=== PATIENT | female | born 1950 | race Two or more races ===

== ENCOUNTER → 2019-11-08 | Outpatient (CLI) | payer OTHER ==
[2019-11-08] MEDS: ZOLPIDEM 5 MG TABLET. PO ONE (22:00)
--- NOTE | 2019-11-09 21:47 | SLEEP ---
DATE OF STUDY: 11/08/2019 SLEEP STUDY ATTENDING PHYSICIAN: Jose Balderas MD The patient is 69 years old who weighs 175 pounds with a BMI of 37. The patient's [place] score was 10. The patient underwent split night study performed at [facility]. During the night study, the patient spent 412 minutes in bed and slept for 304 minutes with a sleep efficiency of 74%. Sleep latency was 36 minutes with a REM latency of 247 minutes. Sleep architecture showed increased stage 1 and stage 2 sleep, normal slow wave and reduced REM sleep. During the initial diagnostic portion of the study, the patient slept for 140 minutes. During that time, the patient had 9 obstructive apneas, 5 mixed apneas, no central apneas and 53 hypopneas. The patient's apnea hypopnea index was 29 per hour. The patient did not have supine sleep. The patient did not have REM sleep during the diagnostic portion. EKG monitoring revealed an average heart rate of 79 beats per minute, no sustained arrhythmias observed. Nocturnal oximetry study revealed a mean oxygen saturation of 92% with the lowest of 85%. A 24% of the time in oxygen saturation remained between 80% and 89%. PLMS were seen at index of 10 per hour and 4 per hour caused EEG arousals. The patient met the criteria for CPAP initiation. It was started at 5 cm water and titrated up to 7 cm water. At the final pressure, the patient slept for 50 minutes. The patient has a supine sleep, but no REM sleep. The patient's AHI was reduced to 0 per hour and oxygen saturation remained above 92%. The patient used medium size nasal pillows. IMPRESSION: 1. Knlkxsow-xu-[id number] sleep apnea-hypopnea syndrome. Total apnea-hypopnea index 29 per hour. Absence of REM sleep during the diagnostic portion can underestimate the severity of sleep apnea. 2. Nocturnal hypoxia, secondary to obstructive sleep apnea, but resolved with CPAP. 3. Mild PLMS. This does not need to be treated. RECOMMENDATIONS: 1. CPAP at 7 cm water completely eliminated the patient's sleep apnea and should be used on a nightly basis. 2. Follow up in 4-6 weeks to assess compliance with CPAP and to document clinical improvement. 3. Weight loss is strongly advised. 4. Avoid GLOVE PRESSER depressants. 5. Cautioned regarding driving until symptoms of sleep apnea resolve with the use of CPAP. PEÑA FLOREZ MD DR: Leoncio JOB#: [id number] / [id number]
== END | disposition home or self-care (01) ==
LOC: SLPLAB 18:12
PROVIDERS: ATTEND Internal Medicine Critical Care Medicine
DX: G47.33 Obstructive sleep apnea (adult) (pediatric) (principal); G47.34 Idiopathic sleep related nonobstructive alveolar hypoventilation
CPT/HCPCS: 95810

== ENCOUNTER → 2019-12-13 | Day surgery (SDC) | payer MEDICARE, OTHER ==
[~2019-12-13] MED LIST: AMLO10TA8 PO; HYDR-2145 PO; IV RINGERS,LACTATED 1000ML 1,000 ML IV SCH; LIDOCAINE 2% PF 5 ML VIAL. ONE; LISI-334 PO; OMEP20TA8 PO; ONDANSETRON PF 4 MG/2 ML VIAL. IV PRN; PROCHLORPERAZINE 10 MG/2 ML VIAL. IV PRN; PROPOFOL 20 ML IV ONE; SIMV20TA18 PO; fentaNYL PF VIAL 100 MCG/2 ML VIAL IV PRN
--- NOTE | 2019-12-13 09:29 | HP ---
ADMIT DATE: 12/13/2019 REASON FOR CONSULTATION: Heartburn, abdominal pain, status post cholecystectomy. HISTORY OF PRESENT ILLNESS: A 69-year-old female whose past medical history is significant for hypertension, hyperlipidemia, status post marti, is seen with persistent epigastric pain; had persistent reflux despite omeprazole 40 mg daily. She does avoid alcohol, nicotine and caffeine products. Cardiac evaluation has been unrevealing. Early cystitis is noted, but her weight is unchanged. With continued issues, she requests additional evaluation. PAST MEDICAL HISTORY: Hypertension, hyperlipidemia, GERD. ALLERGIES: CODEINE. MEDICATIONS: Include amlodipine, hydrochlorothiazide, lisinopril, omeprazole, and simvastatin. FAMILY HISTORY: Significant for CVA with father and Crohn's with sibling, hypertension in her mother. PAST SURGICAL HISTORY: Cholecystectomy and tubal ligation. REVIEW OF SYSTEMS: Per records. PHYSICAL EXAMINATION: GENERAL: Reveals a well-nourished, well-developed female, who is alert, cooperative, in no acute distress. VITAL SIGNS: Temp 97.4, pulse 74, respirations 20. LUNGS: Clear. CARDIOVASCULAR: Reveals an S1, S2 without S3, S4 or appreciable murmur. ABDOMEN: Reveals soft abdomen, normal bowel sounds, without appreciable hepatosplenomegaly. EXTREMITIES: Reveals no cyanosis, clubbing or edema. IMPRESSION: Epigastric abdominal pain with nausea, heartburn, etiology to be determined. Differential includes celiac disease, gastroparesis, peptic ulcer disease, and gastroparesis. Therefore, recommend upper endoscopy. If this is unrevealing, gastric emptying study would be pursued. LINDA HARRIS MD DR: EDWAR/hannah JOB#: [id number] / [id number]
[2019-12-13 09:50] VITALS: BP 100/51
== END ==
LOC: ENDOS 07:40
PROVIDERS: ATTEND Internal Medicine Gastroenterology
DX: R10.13 Epigastric pain (principal); K44.9 Diaphragmatic hernia without obstruction or gangrene; K21.9 Gastro-esophageal reflux disease without esophagitis; I10 Essential (primary) hypertension; E78.5 Hyperlipidemia, unspecified; Z90.49 Acquired absence of other specified parts of digestive tract; Z88.5 Allergy status to narcotic agent; Z98.51 Tubal ligation status
CPT/HCPCS: 43235; J2001; J2704

== ENCOUNTER 2020-02-23 10:19 | Emergency (ER) | payer MEDICARE ==
[~2020-02-23] VITALS: Ht 157.5 cm; Wt 79.5 kg
[~2020-02-23 10:19] MED LIST changes: -IV RINGERS,LACTATED 1000ML 1,000 ML IV SCH; -LIDOCAINE 2% PF 5 ML VIAL. ONE; -ONDANSETRON PF 4 MG/2 ML VIAL. IV PRN; -PROCHLORPERAZINE 10 MG/2 ML VIAL. IV PRN; -PROPOFOL 20 ML IV ONE; -fentaNYL PF VIAL 100 MCG/2 ML VIAL IV PRN
--- NOTE | 2020-02-23 11:09 | PHYS DOC ---
Past Medical History Past Medical History: GERD, High Cholesterol, Hypertension Past Surgical History: Appendectomy, Cholecystectomy, Tubal ligation Additional Past Surgical Histo: left foot, left arm Smoking Status: Current Every Day Smoker Alcohol Use: None Adult General Chief Complaint Chief Complaint: SHORTNESS OF BREATH HPI HPI Patient is a 69 year old female who presents with 1 week of malaise, cough, chills, shortness of breath. Patient son is a EMS worker and she when she called her primary care today they stated for her to come in and be evaluated in the ER due to her son being an EMS worker and unknown if he has been around a patient with coronavirus. Patient states she is been taking Tylenol for her symptoms. Review of Systems Review of Systems Constitutional: s fever or chills [] Respiratory: cough or shortness of breath [] All other systems were reviewed and found to be within normal limits, except as documented in this note. Current Medications Current Medications Current Medications Medications (Trade) Dose Ordered Sig/Celeste Start Time Stop Time Status Last Admin Dose Admin Albuterol Sulfate (Ventolin Neb Soln) 2.5 mg 1X ONCE 02/23/20 11:45 02/23/20 11:46 DC 02/23/20 11:45 2.5 MG Methylprednisolone Sodium Succinate (SOLU-Medrol 125MG VIAL) 125 mg 1X ONCE 02/23/20 11:45 02/23/20 11:46 DC 02/23/20 11:50 125 MG Sodium Chloride 1,000 ml @ 1,000 mls/hr 1X ONCE 02/23/20 12:15 02/23/20 13:14 DC 02/23/20 12:37 1,000 MLS/HR Allergies Allergies Allergies Coded Allergies Type Severity Reaction Last Updated Verified codeine Allergy Mild 12/13/19 Yes Physical Exam Physical Exam Constitutional: Well developed, well nourished, no acute distress, non-toxic appearance. [] HENT: Normocephalic, atraumatic, bilateral external ears normal, oropharynx moist, no oral exudates, nose normal. [] Eyes: PERRLA, EOMI, conjunctiva normal, no discharge. [] Neck: Normal range of motion, no tenderness, supple, no stridor. [] Cardiovascular:Heart rate regular rhythm, no murmur [] Lungs & Thorax: Bilateral breath sounds clear to auscultation [] Abdomen: Bowel sounds normal, soft, no tenderness, no masses, no pulsatile masses. [] Skin: Warm, dry, no erythema, no rash. [] Back: No tenderness, no CVA tenderness. [] Extremities: No tenderness, no cyanosis, no clubbing, ROM intact, no edema. [] Neurologic: Alert and oriented X 3, normal motor function, normal sensory fun ction, no focal deficits noted. [] Psychologic: Affect normal, judgement normal, mood normal. Normal Physical Exam[] Current Patient Data Vital Signs Vital Signs Date Time Temp Pulse Resp B/P (MAP) Pulse Ox O2 Delivery O2 Flow Rate FiO2 02/23/20 12:30 66 10 122/73 (89) 96 Room Air 02/23/20 10:34 98.5 98.5 Lab Values Laboratory Tests Test 02/23/20 11:10 02/23/20 11:30 02/23/20 13:00 Influenza Type A Antigen Negative (NEGATIVE) Influenza Type B Antigen Negative (NEGATIVE) White Blood Count 7.2 x10^3/uL (4.0-11.0) Red Blood Count 4.52 x10^6/uL (3.50-5.40) Hemoglobin 14.1 g/dL (12.0-15.5) Hematocrit 41.1 % (36.0-47.0) Mean Corpuscular Volume 91 fL (79-100) Mean Corpuscular Hemoglobin 31 pg (25-35) Mean Corpuscular Hemoglobin Concent 34 g/dL (31-37) Red Cell Distribution Width 14.4 % (11.5-14.5) Platelet Count 225 x10^3/uL (140-400) Neutrophils (%) (Auto) 70 % (31-73) Lymphocytes (%) (Auto) 23 % (24-48) L Monocytes (%) (Auto) 5 % (0-9) Eosinophils (%) (Auto) 1 % (0-3) Basophils (%) (Auto) 1 % (0-3) Neutrophils # (Auto) 5.0 x10^3/uL (1.8-7.7) Lymphocytes # (Auto) 1.7 x10^3/uL (1.0-4.8) Monocytes # (Auto) 0.4 x10^3/uL (0.0-1.1) Eosinophils # (Auto) 0.0 x10^3/uL (0.0-0.7) Basophils # (Auto) 0.0 x10^3/uL (0.0-0.2) Sodium Level 139 mmol/L (136-145) Potassium Level 3.6 mmol/L (3.5-5.1) Chloride Level 101 mmol/L (98-107) Carbon Dioxide Level 27 mmol/L (21-32) Anion Gap 11 (6-14) Blood Urea Nitrogen 11 mg/dL (7-20) Creatinine 0.8 mg/dL (0.6-1.0) Estimated GFR (Cockcroft-Gault) 71.3 BUN/Creatinine Ratio 14 (6-20) Glucose Level 105 mg/dL (70-99) H Calcium Level 9.6 mg/dL (8.5-10.1) Total Bilirubin 0.5 mg/dL (0.2-1.0) Aspartate Amino Transferase (AST) 29 U/L (15-37) Alanine Aminotransferase (ALT) 26 U/L (14-59) Alkaline Phosphatase 57 U/L (46-116) Troponin I Quantitative < 0.017 ng/mL (0.000-0.055) ZP-Vqy-S-Type Natriuretic Peptide 31 pg/mL (0-124) Total Protein 6.9 g/dL (6.4-8.2) Albumin 4.1 g/dL (3.4-5.0) Albumin/Globulin Ratio 1.5 (1.0-1.7) Urine Collection Type Unknown Urine Color Yellow Urine Clarity Clear Urine pH 6.5 (<5.0-8.0) Urine Specific [place] 1.010 (1.000-1.030) Urine Protein Negative mg/dL (NEG-TRACE) Urine Glucose (UA) Negative mg/dL (NEG) Urine Ketones (Stick) Negative mg/dL (NEG) Urine Blood Negative (NEG) Urine Nitrite Negative (NEG) Urine Bilirubin Negative (NEG) Urine Urobilinogen Dipstick 0.2 mg/dL (0.2 mg/dL) Urine Leukocyte Esterase Negative (NEG) Urine RBC 0 /HPF (0-2) Urine WBC Occ /HPF (0-4) Urine Squamous Epithelial Cells Few /LPF Urine Bacteria 0 /HPF (0-FEW) Laboratory Tests 02/23/20 11:30 Laboratory Tests 02/23/20 11:30 EKG EKG Sinus Rhythm and no STEMI[] Interpretation Time: [address] Prather Radiology/Procedures Radiology/Procedures [] Impressions: [facility] [address] [place] [address] IMAGING REPORT Signed PATIENT: NBA LATHAM ACCOUNT: [id number] : 1950 LOCATION: ER AGE: 69 SEX: F EXAM STATUS: REG ER ORD. PHYSICIAN: RICHARD MCKEON APRN REASON: SHORT OF BREATH, COUGH PROCEDURE: PORTABLE CHEST 1V PORTABLE CHEST 1V History: Shortness of breath. Cough. Comparison with images of chest x-ray from 08/09/2009, without the report. The cardiomediastinal silhouette is similar and not enlarged. Aortic ectasia/tortuosity is again seen. There is some retrocardiac density, most likely a hiatal hernia. This was also seen previously although appears larger today. No evidence of pneumothorax. No pleural effusion. No focal infiltrate. Bones appear grossly intact. IMPRESSION: 1. Retrocardiac density, most likely a hiatal hernia. Also seen previously but appears larger today. Nonemergent CT chest could confirm, as indicated. 2. No evidence of consolidating infiltrate. Electronically signed by: Rick Lazo MD (02/23/2020 11:24 AM) [id number] DICTATED and SIGNED BY: RICK LAZO MD DATE: 02/23/20 1124 Course & Med Decision Making Course & Med Decision Making Pertinent Labs and Imaging studies reviewed. (See chart for details) Lungs are clear to auscultation all lobes. Patient's vital signs are within normal limits. No extremity swelling. Alert and oriented. Speaks in full clear sentences. Skin pink warm and dry. Patient's son has no symptoms and has not had to be tested and does not have any history of coronavirus. She has no history of travel or being around anybody else is been sick. She denies any nausea or vomiting, abdominal pain, chest pain, diarrhea, headache, dizziness, numbness or tingling, visual changes. Patient does have a history of GERD, hypertension, high cholesterol, appendectomy, cholecystectomy, smoker. [] Blood work unremarkable. Chest x-ray unremarkable. Urinalysis shows no infection. Patient is stable. Vital signs within normal limits. Patient will be sent home with an inhaler and steroids. She is a smoker. Dragon Disclaimer Dragon Disclaimer This electronic medical record was generated, in whole or in part, using a voice recognition dictation system. Departure Departure Impression: Primary Impression: Shortness of breath Disposition: HOME, SELF-CARE Condition: STABLE Referrals: UNKNOWN PCP NAME (PCP) Patient Instructions: Shortness of Breath, [id number] Additional Instructions: Follow-up with primary care provider. Take medications as prescribed with food. Stay inside and rest. Drink plenty of fluids. Scripts Albuterol Sulfate (PROAIR HFA INHALER) 8.5 Gm Hfa.aer.ad 1 PUFF INH PRN Q6HRS PRN for SHORTNESS OF BREATH, #1 INHALER 0 Refills Prov: RICHARD MCKEON APRN 02/23/20 Methylprednisolone (MEDROL) 4 Mg Tab.ds.pk 1 PKG PO UD, #1 PKG Prov: RICHARD MCKEON [employer] 02/23/20 RICHARD MCKEON APRN Feb 23, 2020 11:09
--- NOTE | 2020-02-23 11:27 | RAD ---
PORTABLE CHEST 1V History: Shortness of breath. Cough. Comparison with images of chest x-ray from 08/09/2009, without the report. The cardiomediastinal silhouette is similar and not enlarged. Aortic ectasia/tortuosity is again seen. There is some retrocardiac density, most likely a hiatal hernia. This was also seen previously although appears larger today. No evidence of pneumothorax. No pleural effusion. No focal infiltrate. Bones appear grossly intact. IMPRESSION: 1. Retrocardiac density, most likely a hiatal hernia. Also seen previously but appears larger today. Nonemergent CT chest could confirm, as indicated. 2. No evidence of consolidating infiltrate. Electronically signed by: Rick Lazo MD (02/23/2020 11:24 AM) [id number]
[2020-02-23 11:43] LABS: BASO % 1 % (0-3); EOS % 1 % (0-3); HEMATOCRIT 41.1 % (36.0-47.0); HEMOGLOBIN 14.1 g/dL (12.0-15.5); LYMPH # 1.7 x10^3/uL (1.0-4.8); LYMPH % 23 % (24-48); MEAN CORPUSCULAR HEMOGLOBIN 31 pg (25-35); MEAN CORPUSCULAR HGB CONC 34 g/dL (31-37); MEAN CORPUSCULAR VOLUME 91 fL (79-100); MONO # 0.4 x10^3/uL (0.0-1.1); MONO % 5 % (0-9); NEUT % 70 % (31-73); PLATELET COUNT 225 x10^3/uL (140-400); RED BLOOD COUNT 4.52 x10^6/uL (3.50-5.40); RED CELL DISTRIBUTION WIDTH 14.4 % (11.5-14.5); WHITE BLOOD COUNT 7.2 x10^3/uL (4.0-11.0)
[2020-02-23] MEDS ORDERED: ALBUTEROL SULFATE 2.5 MG/3 ML NEBU. NEB ONE (11:45)
[2020-02-23] MEDS ORDERED: methylPREDNISolone SOD SUCC PF 125 MG/2 ML VIAL. IV ONE (11:45)
[2020-02-23 11:52] LABS: CALCIUM 9.6 mg/dL (8.5-10.1); CREATININE 0.8 mg/dL (0.6-1.0); GFR 71.3; POTASSIUM 3.6 mmol/L (3.5-5.1)
[2020-02-23 11:58] LABS: ALBUMIN 4.1 g/dL (3.4-5.0); ALBUMIN/GLOBULIN RATIO 1.5 (1.0-1.7); TOTAL BILIRUBIN 0.5 mg/dL (0.2-1.0); TOTAL PROTEIN 6.9 g/dL (6.4-8.2)
[2020-02-23 11:59] LABS: INFLUENZA A PATIENT NEGATIVE (NEGATIVE); INFLUENZA B PATIENT NEGATIVE (NEGATIVE)
[2020-02-23] MEDS ORDERED: IV NORMAL SALINE 1000ML BAG 1,000 ML IV ONE (12:15)
--- NOTE | 2020-02-23 12:51 | EKG ---
[facility] [address] [place] [address] Test Date: 2020-02-23 Test Time: 10:57:02 Pat Name: NBA LATHAM Department: Room: Gender: F [place]: : 1950 Requested By: RICHARD MCKEON Order Number: [id number] Reading MD: Measurements Intervals [place] Rate: 74 P: 26 TX: 154 QRS: 31 QRSD: 82 T: 28 QT: 400 QTc: 444 Interpretive Statements SINUS RHYTHM LOW LIMB LEAD VOLTAGE NO SPECIFIC ECG ABNORMALITIES RI6.01 No previous ECG available for comparison
[2020-02-23 13:12] LABS: BILIRUBIN,URINE NEGATIVE (NEG); CLARITY,URINE CLEAR; COLOR,URINE YELLOW; NITRITE,URINE NEGATIVE (NEG); PH,URINE 6.5 (<5.0-8.0); PROTEIN,URINE NEGATIVE (NEG-TRACE); UROBILINOGEN,URINE 0.2 mg/dL (0.2 mg/dL)
[2020-02-23 13:18] LABS: SQUAMOUS EPITHELIAL CELL,UR FEW /LPF
[2020-02-23 13:19] LABS: BACTERIA,URINE 0 /HPF (0-FEW); RBC,URINE 0 /HPF (0-2); WBC,URINE OCC /HPF (0-4)
[2020-02-23] MEDS ORDERED: ALBU2.5V8 INH (13:25)
[2020-02-23] MEDS ORDERED: METH4TAB2 PO (13:25)
[2020-02-23 13:30] VITALS: BP 130/72
== END 2020-02-23 14:49 | disposition home or self-care (01) ==
LOC: ER 10:19
DX: R06.02 Shortness of breath (principal); R05 Cough; R53.83 Other fatigue; K21.9 Gastro-esophageal reflux disease without esophagitis; E78.00 Pure hypercholesterolemia, unspecified; I10 Essential (primary) hypertension; Z90.89 Acquired absence of other organs; Z90.49 Acquired absence of other specified parts of digestive tract; Z98.51 Tubal ligation status; F17.200 Nicotine dependence, unspecified, uncomplicated; Z88.5 Allergy status to narcotic agent
CPT/HCPCS: 36415; 71045; 80053; 81001; 83880; 84484; 85025; 87804; 93005; 94640; 96361; 96374; 99285; J2930; J7030; J7613

== ENCOUNTER → 2020-05-23 | Outpatient (CLI) | payer MEDICARE ==
[~2020-05-23] MED LIST changes: +ALBU2.5V8 INH; +CHOL500050 PO; +HYDR-2759 PO; +METH4TAB2 PO; +SUCR1ORA14 PO
== END | disposition home or self-care (01) ==
LOC: LAB 14:13
PROVIDERS: ATTEND Surgery
DX: Z01.818 Encounter for other preprocedural examination (principal); Z11.59 Encounter for screening for other viral diseases
CPT/HCPCS: U0003-CS

== ENCOUNTER 2020-05-27 08:22 | Inpatient (IN) | payer MEDICARE ==
[~2020-05-27] VITALS: Ht 147.3 cm; Wt 72.6 kg
[~2020-05-27 08:22] MED LIST changes: -HYDR-2759 PO; +IV RINGERS,LACTATED 1000ML 1,000 ML IV SCH; +LIDOCAINE 1% PF 2 ML VIAL. ID PRN; +ONDANSETRON PF 4 MG/2 ML VIAL. IV PRN; +PROCHLORPERAZINE 10 MG/2 ML VIAL. IV PRN; +fentaNYL PF VIAL 100 MCG/2 ML VIAL IV PRN
[2020-05-27] MEDS ORDERED: ceFAZolin 2GM PREMIX 2 GM/50 ML BAG IV ONE (09:00)
[2020-05-27] MEDS ORDERED: LIDOCAINE 4% KIT 4 ML SOLUTION. TP ONE (09:06)
[2020-05-27] MEDS ORDERED: fentaNYL PF VIAL 250 MCG/5 ML VIAL ONE (09:06)
[2020-05-27] MEDS ORDERED: PROPOFOL 10 MG/ML (20ML) VIAL. IV ONE (09:06)
[2020-05-27] MEDS ORDERED: ROCURONIUM 100 MG/10 ML VIAL. ONE (09:06)
[2020-05-27] MEDS ORDERED: DESFLURANE 61 TO 120 MINUTES IH ONE (09:06)
[2020-05-27] MEDS ORDERED: MIDAZOLAM HCL/PF 2 MG/2 ML VIAL. ONE (09:06)
[2020-05-27] MEDS ORDERED: LIDOCAINE 1% PF 5 ML VIAL. ONE (09:06)
[2020-05-27] MEDS ORDERED: BUPIVACAINE-EPI 0.5%-1:200000 MPF 30 ML VIAL. ONE (09:26)
[2020-05-27] MEDS ORDERED: SURGICEL HEMOSTAT 4X8 EACH. ONE ×2 (09:27)
[2020-05-27] MEDS ORDERED: GLYCOPYRROLATE 1 MG/5 ML VIAL. ONE (09:51)
[2020-05-27] MEDS ORDERED: PHENYLEPHRINE in 0.9% NACL PF 1 MG/10 ML SYRINGE. IV ONE (11:42)
[2020-05-27] MEDS ORDERED: ePHEDrine PF IN SALINE 50 MG/10 ML SYRINGE. IV ONE (11:43)
[2020-05-27] MEDS ORDERED: fentaNYL PF VIAL 100 MCG/2 ML VIAL ONE (13:00)
[2020-05-27] MEDS: IV NORMAL SALINE 1000ML BAG 1,000 ML IV SCH (13:09)
--- NOTE | 2020-05-27 13:09 | PDOC4 ---
Operative Note Operative Note Operative Note Preoperative Diagnosis: Large paraesophageal hernia Postoperative Diagnosis: Same Procedure: Laparoscopic repair of large paraesophageal hernia with Yvette fundoplication Surgeon: Nahun Baum.: Dr. Rivera Anesthesia: Gen. Estimated Blood Loss: 20 mL Specimen: None Drains: None Complications: None Indications: The patient is a 69-year-old female who was referred following a GI evaluation showing a large paraesophageal hernia. She was offerred surgical repair. The risks of surgery were discussed which include bleeding, infection, recurrent herniation, gastric or esophageal perforation, visceral injury, recurrent reflux, gas bloat syndrome, dysphasia, potential need for additional surgeries or procedures. She understands and would like to proceed. Description: The patient was taken to the operating room and placed supine on the operating table. General anesthesia was performed. The patient was then placed in lithotomy. The abdomen was prepped with ChloraPrep and draped in a standard surgical fashion. A small incision was made superior to and to the patient's left of the umbilicus through which a visualized 5 mm trocar was inserted. A pneumoperitoneum was then created and the laparoscope was introduced. In the right lateral abdomen a 12 mm trocar was inserted. There were numerous adhesions of omentum to the anterior abdominal wall from prior surgery. The central portion of these adhesions were freed off the abdominal wall with a harmonic scalpel to facilitate exposure. A soft fan retractor was used to elevate the left lobe of the liver. In the right upper quadrant a 5 mm trocar was inserted. In the left upper quadrant an 11 mm trocar was inserted while in the left lateral abdomen a 5 mm trocar was inserted. Attention was then directed to the diaphragmatic hiatus. As expected there was a very large hiatal hernia defect with a significant amount of the stomach present in the chest. We began mobilizing the entire hernia sac within the mediastinum. We started this on the right side and began freeing up the sac from the right abdiaziz. The Harmonic scalpel assisted for much of this dissection. We continued mobilizing the sac superiorly well into the mediastinum. We continued this dissection anteriorly freeing up the sac and its attachments in this location. The dissection then continued along the left abdiaziz and the sac and attachments were mobilized here as well. Due to the large size and redundancy of the sac considerable time was required in freeing this out of the mediastinum. The gastrocolic omentum was then opened with the Harmonic scalpel in the upper portion of the greater curvature. We then freed up the upper part of the greater curvature and fundus using the harmonic scalpel. Large blood vessels were doubly clipped and divided. The dissection continued all the way back up t o the left abdiaziz and any remaining splenic attachments were also mobilized. At this point the esophagus was readily visualized and we were able to free up the area around his gastroesophageal junction. A [place] drain was then placed around the esophagus at the GE junction and clips were applied holding the Kristian in place. With retraction on the Kristian we were able to continue freeing up any remaining sac attachments particularly in the posterior location. At this point the GE junction was well within the abdominal cavity. The left and right abdiaziz were then reapproximated with interrupted 2-0 silk sutures using the Endo Stitch device. We reinforced the repair with a Phasix ST mesh patch. The mesh was laid up against the diaphragm covering the suture repiar. Initial fixation sutures were placed at the superior corners of the mesh using 2-0 silk. The entire mesh was then fixed to the diaphragm using the Tisseel fibrin glue. The fundus was then wrapped around in a 360 fashion creating the fundoplic ation. A shoeshine maneuver was used to ensure no twists or kinks. An initial 2-0 Ethibond suture was used securing the fundic lips together. Another suture was placed superior to this which incorporated a small bite of the anterior esophagus. An additional suture was then placed inferiorly completing the fundoplication. At this point hemostasis was good, the hernia was well repaired with good coverage from the biologic mesh, and the fundoplication was intact with a nice orientation. The 11 and 12 mm trochars were then removed and the fascia closed with 0 Vicryl using an Endo Close. The remaining ports were removed and the pneumoperitoneum was relieved. Skin at all incisions was closed with 4-0 Monocryl. Steri-Strips and dressings were applied. The patient tolerated the procedure well. LINDA GARAY MD May 27, 2020 13:09
[2020-05-27] MEDS ORDERED: PROCHLORPERAZINE 10 MG/2 ML VIAL. IV PRN (13:15)
[2020-05-27] MEDS ORDERED: NALOXONE 0.4 MG/ML VIAL. IV PRN (13:15)
[2020-05-27] MEDS ORDERED: ONDANSETRON PF 4 MG/2 ML VIAL. IVP PRN (13:15)
[2020-05-27] MEDS ORDERED: 0.9 % SODIUM CHLORIDE 10 ML DISP.SYRIN. IV PRN (13:15)
[2020-05-27] MEDS: fentaNYL PF VIAL 100 MCG/2 ML VIAL IV PRN ×2 (13:56→14:11)
[2020-05-27] MEDS: IV 1/2 NORMAL SALINE 1,000 ML IV SCH (15:15)
[2020-05-27 16:01] VITALS: BP 110/62
[2020-05-27 16:31] VITALS: BP 118/73
[2020-05-27 17:01] VITALS: BP 119/72
[2020-05-27] MEDS: HYDROmorphone 2 MG/ML VIAL IV PRN ×3 (17:07→22:10)
[2020-05-27 19:00] VITALS: BP 110/73
[2020-05-27 23:00] VITALS: BP 106/65
[2020-05-28] MEDS: HYDROmorphone 2 MG/ML VIAL IV PRN ×6 (01:23→22:12)
[2020-05-28] MEDS: IV 1/2 NORMAL SALINE 1,000 ML IV SCH ×3 (01:24→23:39)
[2020-05-28 03:00] VITALS: BP 110/66
[2020-05-28 07:12] VITALS: BP 109/62
[2020-05-28 10:24] VITALS: BP 102/67
--- NOTE | 2020-05-28 10:36 | NUR ---
SW following. Discussed with RN, pt on 2L oxygen, which she does not use at home, npo. Pt had surgery yesterday. RN advised pt gets around okay, sometimes needing assistance. SW will continue to follow for any discharge planning needs.
[2020-05-28] MEDS: HYDROcodon/APAP 7.5/325MG ORAL 15 ML SOLUTION PO PRN ×2 (12:48→18:13)
[2020-05-28] MEDS: IV NORMAL SALINE 1000ML BAG 1,000 ML IV SCH (13:09)
[2020-05-28 14:23] VITALS: BP 99/59
[2020-05-28 19:00] VITALS: BP 104/58
--- NOTE | 2020-05-28 19:20 | NUR ---
NBA HAS INCREASED HER ACTIVITY. SHE SAT UP IN THE CHAIR FOR APPROX. 2HRS. TOLERATING JELLO AND ICE CHIPS,AND TEA WITHOUT COMPLAINTS OF NAUSEA. ATTEMPTED TO REMOVE O2 --SHE DESATED TO 82-85% REPLACED O2 AT 2LNC. SHE HAS BEEN PAINFUL; SHE HAS HAD DILAUDID X3 AND LORTAB ELIXIR X2.
[2020-05-28 23:00] VITALS: BP 106/67
[2020-05-29] MEDS: HYDROcodon/APAP 7.5/325MG ORAL 15 ML SOLUTION PO PRN ×3 (02:23→14:38)
[2020-05-29 03:00] VITALS: BP 109/62
[2020-05-29 07:09] VITALS: BP 129/69
--- NOTE | 2020-05-29 10:13 | NUR ---
SW following. Discussed with RN, pt still requiring oxygen, RN attempting to titrate. Pt diet advanced to full liquid. SW will continue to follow.
[2020-05-29 10:50] VITALS: BP 114/71
[2020-05-29] MEDS: HYDROmorphone 2 MG/ML VIAL IV PRN (11:36)
--- NOTE | 2020-05-29 12:34 | PDOC ---
PROGRESS NOTES Subjective Subjective Note delayed entry, pt was seen 05/28/20; noted entered 05/29 Pt sore, but overall doing well, on nasal cannula Objective Objective Vital Signs Date Time Temp Pulse Resp B/P (MAP) Pulse Ox O2 Delivery O2 Flow Rate FiO2 05/29/20 11:36 20 05/29/20 10:50 97.5 68 114/71 (85) 94 Nasal Cannula 2.0 97.5 Intake and Output 05/29/20 07:00 Intake Total 1500 ml Balance 1500 ml Intake Oral 500 ml IV Total 1000 ml # Voids 7 Physical Exam Abdomen: Soft (tender with palpation) Assessment Assessment POD 1 lap paraesophageal hernia repair, [place] Plan Plan of Care Begin clears, mobilize, note patient continues to use nasal cannula; given extent of surgery, her age, need for supplemental O2, would not recommend discharge of patient today. Mobilize today and start PO. Comment Review of Relevant I have reviewed the following items veronica (where applicable) has been applied. Medications Current Medications Ondansetron HCl (Zofran) 4 mg PRN Q6HRS PRN IV NAUSEA/VOMITING; Start 05/27/20 at 07:00; Stop 05/28/20 at 06:59; Status DC Fentanyl Citrate (Fentanyl 2ml Vial) 25 mcg PRN Q5MIN PRN IV MILD PAIN 1-3 Last administered on 05/27/20at 14:11; Start 05/27/20 at 07:00; Stop 05/28/20 at 06:59; Status DC Fentanyl Citrate (Fentanyl 2ml Vial) 50 mcg PRN Q5MIN PRN IV MODERATE TO SEVERE PAIN Last administered on 05/27/20at 14:17; Start 05/27/20 at 07:00; Stop 05/28/20 at 06:59; Status DC Ringer's Solution 1,000 ml @ 30 mls/hr Q24H IV ; Start 05/27/20 at 07:00; Stop 05/27/20 at 18:59; Status DC Lidocaine HCl (Xylocaine-Mpf 1% 2ml Vial) 2 ml PRN 1X PRN ID PRIOR TO IV START; Start 05/27/20 at 07:00; Stop 05/28/20 at 06:59; Status DC Prochlorperazine Edisylate (Compazine) 5 mg PACU PRN PRN IV NAUSEA, MRX1; Start 05/27/20 at 07:00; Stop 05/28/20 at 06:59; Status DC Cefazolin Sodium/ Dextrose 50 ml @ 100 mls/hr 1X PREOP PRN IV PRIOR TO PROCEDURE Last administered on 05/27/20at 10:21; Start 05/27/20 at 06:00; Stop 05/27/20 at 18:00; Status DC Propofol (Diprivan) 200 mg STK-MED ONCE IV ; Start 05/27/20 at 09:06; Stop 05/27/20 at 09:06; Status DC Lidocaine HCl (Lta Kit) 4 ml STK-MED ONCE TP ; Start 05/27/20 at 09:06; Stop 05/27/20 at 09:06; Status DC Lidocaine HCl (Xylocaine-Mpf 1% 5ml Vial) 5 ml STK-MED ONCE .ROUTE ; Start 05/27/20 at 09:06; Stop 05/27/20 at 09:06; Status DC Desflurane (Suprane) 60 ml STK-MED ONCE IH ; Start 05/27/20 at 09:06; Stop 05/27/20 at 09:06; Status DC Midazolam HCl (Versed) 2 mg STK-MED ONCE .ROUTE ; Start 05/27/20 at 09:06; Stop 05/27/20 at 09:07; Status DC Fentanyl Citrate (Fentanyl 5ml Vial) 250 mcg STK-MED ONCE .ROUTE ; Start 05/27/20 at 09:06; Stop 05/27/20 at 09:07; Status DC Rocuronium [place] (Zemuron) 100 mg STK-MED ONCE .ROUTE ; Start 05/27/20 at 09:06; Stop 05/27/20 at 09:07; Status DC Bupivacaine HCl/ Epinephrine Bitart (Sensorcain-Epi 0.5%-1:332960 Mpf) 30 ml STK-MED ONCE .ROUTE Last administered on 05/27/20at 10:55; Start 05/27/20 at 09:26; Stop 05/27/20 at 09:27; Status DC Cellulose (Surgicel Hemostat 4x8) 1 each STK-MED ONCE .ROUTE ; Start 05/27/20 at 09:27; Stop 05/27/20 at 09:27; Status DC Cellulose (Surgicel Hemostat 4x8) 1 each STK-MED ONCE .ROUTE ; Start 05/27/20 at 09:27; Stop 05/27/20 at 09:28; Status Cancel Glycopyrrolate (Robinul) 1 mg STK-MED ONCE .ROUTE ; Start 05/27/20 at 09:51; Stop 05/27/20 at 09:52; Status DC Phenylephrine HCl (PHENYLEPHRINE in 0.9% NACL PF) 1 mg STK-MED ONCE IV ; Start 05/27/20 at 11:42; Stop 05/27/20 at 11:42; Status DC Ephedrine Sulfate (ePHEDrine PF IN SALINE SYRINGE) 50 mg STK-MED ONCE IV ; Start 05/27/20 at 11:43; Stop 05/27/20 at 11:43; Status DC Fentanyl Citrate (Fentanyl 2ml Vial) 100 mcg STK-MED ONCE .ROUTE ; Start 05/27/20 at 13:00; Stop 05/27/20 at 13:00; Status DC Sodium Chloride (Normal Saline Flush) 3 ml QSHIFT PRN IV AFTER MEDS AND BLOOD DRAWS; Start 05/27/20 at 13:15 Sodium Chloride 1,000 ml @ 100 mls/hr Q10H IV Last administered on 05/28/20at 23:39; Start 05/27/20 at 13:09; Stop 05/29/20 at 05:23; Status DC Naloxone HCl (Narcan) 0.4 mg PRN Q2MIN PRN IV SEE INSTRUCTIONS; Start 05/27/20 at 13:15 Sodium Chloride 1,000 ml @ 25 mls/hr Q24H IV ; Start 05/27/20 at 13:09 Hydromorphone HCl (Dilaudid) 0.2 mg PRN Q1HR PRN IV PAIN Last administered on 05/29/20at 11:36; Start 05/27/20 at 13:15 Ondansetron HCl (Zofran) 4 mg PRN Q6HRS PRN IVP NAUESA, 1ST CHOICE; Start 05/27/20 at 13:15 Prochlorperazine Edisylate (Compazine) 5 mg PRN Q6HRS PRN IV N/V, 2nd Choice, MR X1; Start 05/27/20 at 13:15 Acetaminophen/ Hydrocodone Bitart (Lortab 7.5-325/ 15ml Oral Solution) 15 ml PRN Q6HRS PRN PO PAIN Last administered on 05/29/20at 07:44; Start 05/28/20 at 12:15 Cefazolin Sodium/ Dextrose (Ancef 2gm Premix) 2 gm STK-MED ONCE IV ; Start 05/27/20 at 09:00; Stop 05/28/20 at 12:22; Status DC Active Scripts Active Proair Hfa Inhaler (Albuterol Sulfate) 8.5 Gm Hfa.aer.ad 1 Puff INH PRN Q6HRS PRN Reported Sucralfate 1 Gm/10 Ml Oral.susp 1 Gm PO DAILY Vitamin D3 (Cholecalciferol (Vitamin D3)) 1,250 Mcg Capsule 50,000 Mcg PO WEEKLY Omeprazole 20 Mg Tablet.dr 40 Mg PO DAILY Amlodipine Besylate 10 Mg Tablet 10 Mg PO DAILY Simvastatin 20 Mg Tablet 20 Mg PO HS Lisinopril 20 Mg Tablet 20 Mg PO DAILY Hydrochlorothiazide Tablet (Hydrochlorothiazide) 25 Mg Tablet 25 Mg PO DAILY Vitals/I & O Vital Sign - Last 24 Hours 05/28/20 05/28/20 05/28/20 05/28/20 13:45 14:19 14:23 15:21 Temp 98.1 98.1 Pulse 63 Resp 17 16 B/P (MAP) 99/59 (72) Pulse Ox 92 82 92 2 O2 Delivery Nasal Cannula Room Air Nasal Cannula Nasal Cannula O2 Flow Rate 2.0 2.0 05/28/20 05/28/20 05/28/20 05/28/20 19:00 19:13 19:45 22:12 Temp 98.1 98.1 Pulse 66 Resp 18 18 B/P (MAP) 104/58 (73) Pulse Ox 93 93 93 O2 Delivery Nasal Cannula Nasal Cannula Nasal Cannula Nasal Cannula O2 Flow Rate 2.0 2.0 2.0 2.0 05/28/20 05/28/20 05/29/20 05/29/20 22:42 23:00 02:23 03:00 Temp 98.0 97.6 98.0 97.6 Pulse 74 69 Resp 18 18 18 B/P (MAP) 106/67 (80) 109/62 (78) Pulse Ox 91 91 94 O2 Delivery Nasal Cannula Nasal Cannula BiPAP/CPAP Nasal Cannula O2 Flow Rate 2.0 2.0 2.0 05/29/20 05/29/20 05/29/20 05/29/20 03:23 07:09 07:44 08:00 Temp 97.9 97.9 Pulse 77 Resp 18 16 B/P (MAP) 129/69 (89) Pulse Ox 96 O2 Delivery BiPAP/CPAP Nasal Cannula Nasal Cannula Nasal Cannula O2 Flow Rate 2.0 2.0 05/29/20 05/29/20 05/29/20 05/29/20 09:00 10:48 10:50 11:36 Temp 97.5 97.5 Pulse 68 Resp 16 20 B/P (MAP) 114/71 (85) Pulse Ox 94 88 94 O2 Delivery Nasal Cannula Room Air Nasal Cannula O2 Flow Rate 2.0 2.0 Intake and Output 05/28/20 05/28/20 05/29/20 15:00 23:00 07:00 Intake Total 0 ml 400 ml 1100 ml Balance 0 ml 400 ml 1100 ml Justicifation of Admission Dx: Justifications for Admission: Justification of Admission Dx: Yes Comments: Pt not ready for discharge today; starting liquids today, pt on O2 nasal cannula, will need to improve oxygenation, mobility, pain control for appropriate discharge LINDA GARAY MD May 29, 2020 12:34
--- NOTE | 2020-05-29 12:54 | PDOC ---
PROGRESS NOTES Subjective Subjective Better today, off O2, ambulating, some soreness; taking liquids well, no reflux Objective Objective Vital Signs Date Time Temp Pulse Resp B/P (MAP) Pulse Ox O2 Delivery O2 Flow Rate FiO2 05/29/20 11:36 20 05/29/20 10:50 97.5 68 114/71 (85) 94 Nasal Cannula 2.0 97.5 Intake and Output 05/29/20 07:00 Intake Total 1500 ml Balance 1500 ml Intake Oral 500 ml IV Total 1000 ml # Voids 7 Physical Exam Abdomen: Soft Assessment Assessment POD 2, improving, taking PO, off oxygen, ambulating; appears ready for discharge Comment Review of Relevant I have reviewed the following items veronica (where applicable) has been applied. Medications Current Medications Ondansetron HCl (Zofran) 4 mg PRN Q6HRS PRN IV NAUSEA/VOMITING; Start 05/27/20 at 07:00; Stop 05/28/20 at 06:59; Status DC Fentanyl Citrate (Fentanyl 2ml Vial) 25 mcg PRN Q5MIN PRN IV MILD PAIN 1-3 Last administered on 05/27/20at 14:11; Start 05/27/20 at 07:00; Stop 05/28/20 at 06:59; Status DC Fentanyl Citrate (Fentanyl 2ml Vial) 50 mcg PRN Q5MIN PRN IV MODERATE TO SEVERE PAIN Last administered on 05/27/20at 14:17; Start 05/27/20 at 07:00; Stop 05/28/20 at 06:59; Status DC Ringer's Solution 1,000 ml @ 30 mls/hr Q24H IV ; Start 05/27/20 at 07:00; Stop 05/27/20 at 18:59; Status DC Lidocaine HCl (Xylocaine-Mpf 1% 2ml Vial) 2 ml PRN 1X PRN ID PRIOR TO IV START; Start 05/27/20 at 07:00; Stop 05/28/20 at 06:59; Status DC Prochlorperazine Edisylate (Compazine) 5 mg PACU PRN PRN IV NAUSEA, MRX1; Start 05/27/20 at 07:00; Stop 05/28/20 at 06:59; Status DC Cefazolin Sodium/ Dextrose 50 ml @ 100 mls/hr 1X PREOP PRN IV PRIOR TO PROCEDURE Last administered on 05/27/20at 10:21; Start 05/27/20 at 06:00; Stop 05/27/20 at 18:00; Status DC Propofol (Diprivan) 200 mg STK-MED ONCE IV ; Start 05/27/20 at 09:06; Stop 05/27/20 at 09:06; Status DC Lidocaine HCl (Lta Kit) 4 ml STK-MED ONCE TP ; Start 05/27/20 at 09:06; Stop 05/27/20 at 09:06; Status DC Lidocaine HCl (Xylocaine-Mpf 1% 5ml Vial) 5 ml STK-MED ONCE .ROUTE ; Start 05/27/20 at 09:06; Stop 05/27/20 at 09:06; Status DC Desflurane (Suprane) 60 ml STK-MED ONCE IH ; Start 05/27/20 at 09:06; Stop 05/27/20 at 09:06; Status DC Midazolam HCl (Versed) 2 mg STK-MED ONCE .ROUTE ; Start 05/27/20 at 09:06; Stop 05/27/20 at 09:07; Status DC Fentanyl Citrate (Fentanyl 5ml Vial) 250 mcg STK-MED ONCE .ROUTE ; Start 05/27/20 at 09:06; Stop 05/27/20 at 09:07; Status DC Rocuronium [place] (Zemuron) 100 mg STK-MED ONCE .ROUTE ; Start 05/27/20 at 09:06; Stop 05/27/20 at 09:07; Status DC Bupivacaine HCl/ Epinephrine Bitart (Sensorcain-Epi 0.5%-1:407673 Mpf) 30 ml STK-MED ONCE .ROUTE Last administered on 05/27/20at 10:55; Start 05/27/20 at 09:26; Stop 05/27/20 at 09:27; Status DC Cellulose (Surgicel Hemostat 4x8) 1 each STK-MED ONCE .ROUTE ; Start 05/27/20 at 09:27; Stop 05/27/20 at 09:27; Status DC Cellulose (Surgicel Hemostat 4x8) 1 each STK-MED ONCE .ROUTE ; Start 05/27/20 at 09:27; Stop 05/27/20 at 09:28; Status Cancel Glycopyrrolate (Robinul) 1 mg STK-MED ONCE .ROUTE ; Start 05/27/20 at 09:51; Stop 05/27/20 at 09:52; Status DC Phenylephrine HCl (PHENYLEPHRINE in 0.9% NACL PF) 1 mg STK-MED ONCE IV ; Start 05/27/20 at 11:42; Stop 05/27/20 at 11:42; Status DC Ephedrine Sulfate (ePHEDrine PF IN SALINE SYRINGE) 50 mg STK-MED ONCE IV ; Start 05/27/20 at 11:43; Stop 05/27/20 at 11:43; Status DC Fentanyl Citrate (Fentanyl 2ml Vial) 100 mcg STK-MED ONCE .ROUTE ; Start 05/27/20 at 13:00; Stop 05/27/20 at 13:00; Status DC Sodium Chloride (Normal Saline Flush) 3 ml QSHIFT PRN IV AFTER MEDS AND BLOOD DRAWS; Start 05/27/20 at 13:15 Sodium Chloride 1,000 ml @ 100 mls/hr Q10H IV Last administered on 05/28/20at 23:39; Start 05/27/20 at 13:09; Stop 05/29/20 at 05:23; Status DC Naloxone HCl (Narcan) 0.4 mg PRN Q2MIN PRN IV SEE INSTRUCTIONS; Start 05/27/20 at 13:15 Sodium Chloride 1,000 ml @ 25 mls/hr Q24H IV ; Start 05/27/20 at 13:09 Hydromorphone HCl (Dilaudid) 0.2 mg PRN Q1HR PRN IV PAIN Last administered on 05/29/20at 11:36; Start 05/27/20 at 13:15 Ondansetron HCl (Zofran) 4 mg PRN Q6HRS PRN IVP NAUESA, 1ST CHOICE; Start 05/27/20 at 13:15 Prochlorperazine Edisylate (Compazine) 5 mg PRN Q6HRS PRN IV N/V, 2nd Choice, MR X1; Start 05/27/20 at 13:15 Acetaminophen/ Hydrocodone Bitart (Lortab 7.5-325/ 15ml Oral Solution) 15 ml PRN Q6HRS PRN PO PAIN Last administered on 05/29/20at 07:44; Start 05/28/20 at 12:15 Cefazolin Sodium/ Dextrose (Ancef 2gm Premix) 2 gm STK-MED ONCE IV ; Start 05/27/20 at 09:00; Stop 05/28/20 at 12:22; Status DC Active Scripts Active Proair Hfa Inhaler (Albuterol Sulfate) 8.5 Gm Hfa.aer.ad 1 Puff INH PRN Q6HRS PRN Reported Sucralfate 1 Gm/10 Ml Oral.susp 1 Gm PO DAILY Vitamin D3 (Cholecalciferol (Vitamin D3)) 1,250 Mcg Capsule 50,000 Mcg PO WEEKLY Omeprazole 20 Mg Tablet.dr 40 Mg PO DAILY Amlodipine Besylate 10 Mg Tablet 10 Mg PO DAILY Simvastatin 20 Mg Tablet 20 Mg PO HS Lisinopril 20 Mg Tablet 20 Mg PO DAILY Hydrochlorothiazide Tablet (Hydrochlorothiazide) 25 Mg Tablet 25 Mg PO DAILY Vitals/I & O Vital Sign - Last 24 Hours 05/28/20 05/28/20 05/28/20 05/28/20 13:45 14:19 14:23 15:21 Temp 98.1 98.1 Pulse 63 Resp 17 16 B/P (MAP) 99/59 (72) Pulse Ox 92 82 92 2 O2 Delivery Nasal Cannula Room Air Nasal Cannula Nasal Cannula O2 Flow Rate 2.0 2.0 05/28/20 05/28/20 05/28/20 05/28/20 19:00 19:13 19:45 22:12 Temp 98.1 98.1 Pulse 66 Resp 18 18 B/P (MAP) 104/58 (73) Pulse Ox 93 93 93 O2 Delivery Nasal Cannula Nasal Cannula Nasal Cannula Nasal Cannula O2 Flow Rate 2.0 2.0 2.0 2.0 05/28/20 05/28/20 05/29/20 05/29/20 22:42 23:00 02:23 03:00 Temp 98.0 97.6 98.0 97.6 Pulse 74 69 Resp 18 18 18 B/P (MAP) 106/67 (80) 109/62 (78) Pulse Ox 91 91 94 O2 Delivery Nasal Cannula Nasal Cannula BiPAP/CPAP Nasal Cannula O2 Flow Rate 2.0 2.0 2.0 05/29/20 05/29/20 05/29/20 05/29/20 03:23 07:09 07:44 08:00 Temp 97.9 97.9 Pulse 77 Resp 18 16 B/P (MAP) 129/69 (89) Pulse Ox 96 O2 Delivery BiPAP/CPAP Nasal Cannula Nasal Cannula Nasal Cannula O2 Flow Rate 2.0 2.0 05/29/20 05/29/20 05/29/20 05/29/20 09:00 10:48 10:50 11:36 Temp 97.5 97.5 Pulse 68 Resp 16 20 B/P (MAP) 114/71 (85) Pulse Ox 94 88 94 O2 Delivery Nasal Cannula Room Air Nasal Cannula O2 Flow Rate 2.0 2.0 Intake and Output 05/28/20 05/28/20 05/29/20 15:00 23:00 07:00 Intake Total 0 ml 400 ml 1100 ml Balance 0 ml 400 ml 1100 ml Justicifation of Admission Dx: Justifications for Admission: Justification of Admission Dx: Yes LINDA GARAY MD May 29, 2020 12:54
--- NOTE | 2020-05-29 13:06 | DISCH ---
DISCHARGE INSTRUCTIONS Condition on Discharge Condition on Discharge: Stable Activity After Discharge Activity Instructions for Disc: Other, see below (no lifting over 20 lbs X 2 weeks) Diet after Discharge Diet after Discharge: Full Liquid Follow-Up Follow up with: Dr Garay in 2 weeks in office, call for appt [phone] LINDA GARAY MD May 29, 2020 13:06
--- NOTE | 2020-05-29 13:08 | PDOC3 ---
Discharge Summary Visit Information Date of Admission: May 27, 2020 Date of Discharge: May 29, 2020 Admitting Diagnosis: Paraesophageal hernia Brief Hospital Course Allergies Allergies Coded Allergies Type Severity Reaction Last Updated Verified codeine Allergy Mild 05/21/20 Yes Vital Signs Vital Signs Date Time Temp Pulse Resp B/P (MAP) Pulse Ox O2 Delivery O2 Flow Rate FiO2 05/29/20 11:36 20 05/29/20 10:50 97.5 68 114/71 (85) 94 Nasal Cannula 2.0 97.5 Brief Hospital Course Ms. Weinstein is a 69 old female who presented with a large paraesophageal hernia. She presented for surgical repair. She underwent a laparoscopic paraesophageal hernia repair with [place] fundoplication. She was started on liquids on POD 1 which she tolerated well. She required O2 by nasal cannula which was weaned off by POD 2. She appeared stable for discharge on POD 2. Discharge Information Condition at Discharge: Improved Follow Up: Weeks (2 weeks) Disposition/Orders: D/C to Home Scheduled Amlodipine Besylate (Amlodipine Besylate) 10 Mg Tablet, 10 MG PO DAILY for htn, (Reported) Entered as Reported by: MOISÉS MARTIN on 12/13/19816 Last Taken: Unknown Dose on 05/27/20 05 Last Action: Last Taken Edited on 05/27/20933 by VANESSA BATRES Cholecalciferol (Vitamin D3) (Vitamin D3) 1,250 Mcg Capsule, 50,000 MCG PO WEEKLY for VITAMIN , (Reported) Entered as Reported by: ALEJANDRO ALONZO on 05/21/201607 Last Action: New Order on 05/21/201607 by ALEJANDRO ALONZO Hydrochlorothiazide (Hydrochlorothiazide Tablet ) 25 Mg Tablet, 25 MG PO DAILY for DIURETIC, Ref 0 (Reported) Entered as Reported by: MOISÉS MARTIN on 12/13/19816 Last Action: Reviewed on 05/21/201604 by ALEJANDRO ALONZO Lisinopril (Lisinopril) 20 Mg Tablet, 20 MG PO DAILY for FOR HYPERTENSION, #30 Ref 0 (Reported) Entered as Reported by: MOISÉS MARTIN on 12/13/19816 Last Action: Reviewed on 05/21/201604 by ALEJANDRO ALONZO Omeprazole (Omeprazole) 20 Mg Tablet.dr, 40 MG PO DAILY for gerd, (Reported) Entered as Reported by: MOISÉS MARTIN on 12/13/19816 Last Taken: Unknown Dose on 05/27/20 0530 Last Action: Last Taken Edited on 05/27/20 09 by VANESSA BATRES Simvastatin (Simvastatin) 20 Mg Tablet, 20 MG PO HS for FOR CHOLESTEROL, #30 Ref 0 (Reported) Entered as Reported by: MOISÉS MARTIN on 12/13/19816 Last Action: Reviewed on 05/21/201604 by ALEJANDRO ALONZO Sucralfate (Sucralfate) 1 Gm/10 Ml Oral.susp, 1 GM PO DAILY for STOMACH , (Reported) Entered as Reported by: ALEJANDRO ALONZO on 05/21/201607 Last Action: New Order on 05/21/201607 by ALEJANDRO ALONZO Scheduled PRN Albuterol Sulfate (Proair Hfa Inhaler) 8.5 Gm Hfa.aer.ad, 1 PUFF INH PRN Q6HRS PRN for SHORTNESS OF BREATH, #1 Ref 0 Prescribed by: RICHARD MCKEON APRN on 02/23/20 1325 Last Action: Reviewed on 05/21/201604 by ALEJANDRO ALONZO Justicifation of Admission Dx: Justifications for Admission: Justification of Admission Dx: Yes LINDA GARAY MD May 29, 2020 13:08
[2020-05-29 14:33] VITALS: BP 123/76
--- NOTE | 2020-05-29 15:10 | NUR ---
reviewed discharge instructions with patient and daughter. reviewed medications and the stomach medications that she is no longer to take. she is no longer to take omeprazole and Carafate; verbalized understanding. reviewed lortab elixir and side effects. encouraged to drink fluids and went over full liquids. showered here and instructed not to take bath. script given saline removed dismissed home with daughter.all questions answered and reviewed restrictions to activities of daily living.
== END 2020-05-29 15:22 | disposition home or self-care (01) | DRG 328 ==
LOC: SURG 08:22 → 4 NORTH 13:09
PROVIDERS: ADMIT Surgery; ATTEND Surgery
PROC: 0BUT4JZ Supplement Diaphragm with Synthetic Substitute, Percutaneous Endoscopic Approach (ICD-10-PCS; 2020-05-27)
PROC: 0DV44ZZ Restriction of Esophagogastric Junction, Percutaneous Endoscopic Approach (ICD-10-PCS; principal; 2020-05-27 10:15)
PROC: 5A09357 Assistance with Respiratory Ventilation, Less than 24 Consecutive Hours, Continuous Positive Airway Pressure (ICD-10-PCS; 2020-05-28)
PROC: 5A09357 Assistance with Respiratory Ventilation, Less than 24 Consecutive Hours, Continuous Positive Airway Pressure (ICD-10-PCS; 2020-05-29)
DX: K44.9 Diaphragmatic hernia without obstruction or gangrene (principal); K66.0 Peritoneal adhesions (postprocedural) (postinfection); Z88.8 Allergy status to other drugs, medicaments and biological substances; Z79.899 Other long term (current) drug therapy; I10 Essential (primary) hypertension; E66.9 Obesity, unspecified; Z68.33 Body mass index [BMI] 33.0-33.9, adult
CPT/HCPCS: A7015; C1781; J0690; J1170; J2250; J2370; J2704; J3010; J3490; J7030; J7120; G0378

== ENCOUNTER 2020-06-23 17:28 | Emergency (ER) | payer MEDICARE ==
[~2020-06-23] VITALS: Ht 144.8 cm; Wt 75.0 kg
[~2020-06-23 17:28] MED LIST changes: -IV RINGERS,LACTATED 1000ML 1,000 ML IV SCH; -LIDOCAINE 1% PF 2 ML VIAL. ID PRN; -ONDANSETRON PF 4 MG/2 ML VIAL. IV PRN; -PROCHLORPERAZINE 10 MG/2 ML VIAL. IV PRN; -fentaNYL PF VIAL 100 MCG/2 ML VIAL IV PRN
--- NOTE | 2020-06-23 17:54 | PHYS DOC ---
Past Medical History Past Medical History: GERD, High Cholesterol, Hypertension, Other Additional Past Medical Histor: abd hernia Past Surgical History: Appendectomy, Cholecystectomy, Tubal ligation Additional Past Surgical Histo: left foot, left arm Smoking Status: Never Smoker Alcohol Use: None General Adult EDM: Chief Complaint: CHEST PAIN HPI: HPI: Patient is a 70 year old female who presents with chest discomfort cough and congestion. Onset of the symptoms approximately 7 days ago. She states her symptoms been constant. She a recently had a hiatal hernia surgery about 3 weeks ago. She states the discomfort in her chest feels similar to what she had previous to the surgery. She denies any sick contacts. She denies any productive cough or measured fever. She denies any nausea or vomiting. She states she had a full cardiac evaluation prior to her hiatal hernia surgery. No diarrhea. Review of Systems: Review of Systems: Constitutional: Denies fever or chills. [] Eyes: Denies change in visual acuity. [] HENT: Denies nasal congestion or sore throat. [] Respiratory: Denies cough or shortness of breath. [] Cardiovascular: Denies chest pain or edema. [] GI: Denies abdominal pain, nausea, vomiting, bloody stools or diarrhea. [] : Denies dysuria. [] Musculoskeletal: Denies back pain or joint pain. [] Integument: Denies rash. [] Neurologic: Denies headache, focal weakness or sensory changes. [] Endocrine: Denies polyuria or polydipsia. [] Lymphatic: Denies swollen glands. [] Psychiatric: Denies depression or anxiety. [] Heart Score: Risk Factors: Risk Factors: DM, Current or recent (<one month) smoker, HTN, HLP, family history of CAD, obesity. Risk Scores: Score 0 - 3: 2.5% MACE over next 6 weeks - Discharge Home Score 4 - 6: 20.3% MACE over next 6 weeks - Admit for Clinical Observation Score 7 - 10: 72.7% MACE over next 6 weeks - Early Invasive Strategies Allergies: Allergies: Allergies Coded Allergies Type Severity Reaction Last Updated Verified codeine Allergy Mild 05/21/20 Yes Physical Exam: PE: Constitutional: Well developed, well nourished, no acute distress, non-toxic appearance. [] HENT: Normocephalic, atraumatic, bilateral external ears normal, oropharynx moist, no oral exudates, nose normal. [] Eyes: PERRLA, EOMI, conjunctiva normal, no discharge. [] Neck: Normal range of motion, no tenderness, supple, no stridor. [] Cardiovascular:Heart rate regular rhythm, no murmur [] Lungs & Thorax: Bilateral breath sounds clear to auscultation [] Abdomen: Bowel sounds normal, soft, Mild tenderness to the epigastrium Skin: Warm, dry, no erythema, no rash. [] Back: No tenderness, no CVA tenderness. [] Extremities: No tenderness, no cyanosis, no clubbing, ROM intact, no edema. [] Neurologic: Alert and oriented X 3, normal motor function, normal sensory function, no focal deficits noted. [] Psychologic: Affect normal, judgement normal, mood normal. [] EKG: EKG: NSR at 79 BPM. No acute ischemic changes. [] Radiology/Procedures: Radiology/Procedures: [] Course & Med Decision Making: Course & Med Decision Making Pertinent Labs and Imaging studies reviewed. (See chart for details) 70 yo female with URI symptoms and chest heaviness. Will perform cardiac evaluation and possibly covid outpatient testing. Cardiac work-up is negative. Patient possibly is having prolonged pain from her recent hiatal hernia surgery. She will follow-up with her surgeon. No further work-up necessary in the emergency department. Bess Disclaimer: Bess Disclaimer: This electronic medical record was generated, in whole or in part, using a voice recognition dictation system. Departure Departure Impression: Primary Impression: Chest pain Disposition: HOME, SELF-CARE Condition: IMPROVED Referrals: UNKNOWN PCP NAME (PCP) LINDA GARAY MD Patient Instructions: Chest Pain (Nonspecific), [id number] Scripts Hydrocodone/Acetaminophen (Hydrocodone-Acetamin 5-325 mg) 1 Each Tablet 1 EACH PO Q6HRS PRN for chest pain for 7 Days, #10 TAB Prov: GREGORIO CABRALES DO 06/23/20 Justicifation of Admission Dx: Justifications for Admission: Justification of Admission Dx: Yes GREGORIO CABRALES DO Jun 23, 2020 17:54
[2020-06-23 18:48] LABS: BASO # 0.1 x10^3/uL (0.0-0.2); BASO % 1 % (0-3); EOS # 0.1 x10^3/uL (0.0-0.7); EOS % 2 % (0-3); HEMATOCRIT 36.8 % (36.0-47.0); HEMOGLOBIN 13.3 g/dL (12.0-15.5); LYMPH # 2.7 x10^3/uL (1.0-4.8); LYMPH % 39 % (24-48); MEAN CORPUSCULAR HEMOGLOBIN 33 pg (25-35); MEAN CORPUSCULAR HGB CONC 36 g/dL (31-37); MEAN CORPUSCULAR VOLUME 91 fL (79-100); MONO # 0.5 x10^3/uL (0.0-1.1); MONO % 8 % (0-9); NEUT # 3.4 x10^3/uL (1.8-7.7); NEUT % 51 % (31-73); PLATELET COUNT 328 x10^3/uL (140-400); RED BLOOD COUNT 4.06 x10^6/uL (3.50-5.40); RED CELL DISTRIBUTION WIDTH 12.8 % (11.5-14.5); WHITE BLOOD COUNT 6.8 x10^3/uL (4.0-11.0)
--- NOTE | 2020-06-23 18:54 | RAD ---
Exam: Chest one view INDICATION: Chest pain, cough TECHNIQUE: Frontal view of the chest Comparisons: 02/23/2020 FINDINGS: The cardiomediastinal silhouette and pulmonary vessels are within normal limits. The lung and pleural spaces are clear. IMPRESSION: No acute cardiopulmonary process. Electronically signed by: Ai Huitron MD (06/23/2020 6:51 PM) [id number]
[2020-06-23] MEDS ORDERED: MORPHINE SULFATE 4 MG/ML VIAL. IV ONE (19:00)
[2020-06-23 19:28] LABS: CALCIUM 9.3 mg/dL (8.5-10.1); CREATININE 0.9 mg/dL (0.6-1.0); GFR 62.1
[2020-06-23 19:34] LABS: ALBUMIN 3.5 g/dL (3.4-5.0); ALBUMIN/GLOBULIN RATIO 0.9 (1.0-1.7); TOTAL BILIRUBIN 0.3 mg/dL (0.2-1.0); TOTAL PROTEIN 7.4 g/dL (6.4-8.2)
[2020-06-23] MEDS ORDERED: HYDR-2759 PO (20:48)
[2020-06-23 21:16] VITALS: BP 107/68
--- NOTE | 2020-06-25 03:11 | EKG ---
[facility] [address] [place] [address] Test Date: 2020-06-23 Test Time: 17:43:19 Pat Name: NBA LATHAM Department: Room: Gender: F [employer] T[employer]: : 1950 Requested By: GREGORIO CABRALES Order Number: [id number] Reading MD: Measurements Intervals [place] Rate: 79 P: 36 ND: 156 QRS: 28 QRSD: 82 T: 28 QT: 408 QTc: 469 Interpretive Statements SINUS RHYTHM LOW LIMB LEAD VOLTAGE QRS(T) CONTOUR ABNORMALITY CONSISTENT WITH INFERIOR INFARCT PROBABLY OLD ABNORMAL ECG RI6.01 No previous ECG available for comparison
== END 2020-06-23 21:20 | disposition home or self-care (01) ==
LOC: ER 17:28
DX: R07.89 Other chest pain (principal); R09.81 Nasal congestion; R05 Cough; K21.9 Gastro-esophageal reflux disease without esophagitis; E78.00 Pure hypercholesterolemia, unspecified; I10 Essential (primary) hypertension; Z98.51 Tubal ligation status; Z90.89 Acquired absence of other organs; Z90.49 Acquired absence of other specified parts of digestive tract; Z98.890 Other specified postprocedural states; Z88.5 Allergy status to narcotic agent
CPT/HCPCS: 36415; 71045; 80053; 84484; 85025; 93005; 96374; 99285; J2270

== ENCOUNTER → 2020-07-08 | Outpatient (CLI) | payer MEDICARE ==
[2020-06-23 21:16] VITALS: BP 107/68
[~2020-07-08] MED LIST changes: +HYDR-2759 PO
--- NOTE | 2020-07-08 14:16 | KCIC ---
Barium esophagram History: Dysphagia, pain, fullness, post hiatal hernia repair about 1 month ago Comparison: None. Findings: Barium esophagram was performed. Esophagus is somewhat diffusely dilated. There was delay of complete emptying of the esophagus with patient both in upright and prone oblique positions. There is circumferential tapering at the level of the gastroesophageal junction presumably on postsurgical basis. There were a few tertiary contractions of the mid to distal esophagus. Fluoroscopy time: 1 minute 39 seconds, 18 images Impression: 1. Esophagus is diffusely dilated, somewhat decreased effective esophageal motility with delayed complete emptying in both upright and prone oblique positions. Electronically signed by: Irja Hinton MD (07/08/2020 2:13 PM) [id number]
== END ==
LOC: KCIC 09:55
PROVIDERS: ATTEND Internal Medicine Gastroenterology
DX: R13.10 Dysphagia, unspecified (principal)
CPT/HCPCS: 74220

== ENCOUNTER → 2020-07-18 | Outpatient (CLI) | payer MEDICARE ==
[2020-06-23 21:16] VITALS: BP 107/68
--- NOTE | 2020-07-19 09:28 | CARD ---
MR#: [id number] Date of Study: 07/18/2020 Ordering Physician: VAA PLATT, Referring Physician: AVA PLATT, Tech: Litzy Barcenas [facility] APPROVED REPORT EXAM: Two-dimensional and M-mode echocardiogram with Doppler and color Doppler. Other Information Quality : Good INDICATION Chest Pain 2D DIMENSIONS RVDd2.3 (2.9-3.5cm)Left Atrium(2D)3.5 (1.6-4.0cm) IVSd0.8 (0.7-1.1cm)Aortic Root(2D)2.4 (2.0-3.7cm) LVDd4.6 (3.9-5.9cm)LVOT Diameter1.9 (1.8-2.4cm) PWd0.8 (0.7-1.1cm)LVDs2.7 (2.5-4.0cm) FS (%) 30.0 %SV69.4 ml LVEF(%)60.0 (>50%) Aortic Valve AoV Peak Pietro.133.7cm/sAoV VTI25.0cm AO Peak GR.7.1mmHgLVOT Peak Pietro.107.7cm/s AO Mean GR.4mmHgAVA (VMAX)2.35cm2 FLORENTINO (VTI)2.70cm2 Mitral Valve MV E Pbfrmxwo05.5cm/sMV DECEL SRVV434fv MV A Wqghrxub27.0cm/sE/A Ratio0.8 Tricuspid Valve TR P. Koyhwxcg618um/sRAP QSYUPKXC7ixJa TR Peak Gr.38dyMiGXHL02kjPl Pulmonary Vein S1 Sajtagte98.1cm/sD2 Esjbkxah29.7cm/s LEFT VENTRICLE The left ventricle is normal size. There is normal left ventricular wall thickness. The left ventricu lar systolic function is normal and the ejection fraction is within normal range. The Ejection Fracti on is 55-60%. There is normal LV segmental wall motion. Transmitral Doppler flow pattern is Grade I-a bnormal relaxation pattern. RIGHT VENTRICLE The right ventricle is normal size. The right ventricular systolic function is normal. ATRIA The left atrium size is normal. The right atrium size is normal. The interatrial septum is intact wit h no evidence for an atrial septal defect or patent foramen ovale as noted on 2-D or Doppler imaging. AORTIC VALVE The aortic valve is normal in structure and function. Doppler and Color Flow revealed no significant aortic regurgitation. There is no significant aortic valvular stenosis. MITRAL VALVE The mitral valve is calcified but opens well. Mitral annular calcification is mild. There is no evide nce of mitral valve prolapse. There is no mitral valve stenosis. Doppler and Color Flow revealed no m itral valve regurgitation noted. TRICUSPID VALVE The tricuspid valve is normal in structure and function. Doppler and Color Flow revealed trace tricus pid regurgitation. The PA pressure was estimated at 23 mmHg. There is no tricuspid valve stenosis. PULMONIC VALVE The pulmonic valve is not well visualized. Doppler and Color Flow revealed trace pulmonic valvular re gurgitation. There is no pulmonic valvular stenosis. GREAT VESSELS The aortic root is normal in size. The ascending aorta is normal in size. The IVC is normal in size a nd collapses >50% with inspiration. PERICARDIAL EFFUSION There is no evidence of significant pericardial effusion. Critical Notification Critical Value: No <Conclusion> The left ventricle is normal size. The left ventricular systolic function is normal and the ejection fraction is within normal range. The Ejection Fraction is 55-60%. Doppler and Color Flow revealed no significant aortic regurgitation. There is no significant aortic valvular stenosis. Doppler and Color Flow revealed no mitral valve regurgitation noted. Doppler and Color Flow revealed trace tricuspid regurgitation. The PA pressure was estimated at 23 mmHg. Signed by : Bill Monteiro MD Electronically Approved : 07/19/2020 09:27:41
== END | disposition home or self-care (01) ==
LOC: ECHO 12:50
PROVIDERS: ATTEND Internal Medicine Cardiovascular Disease
DX: I34.0 Nonrheumatic mitral (valve) insufficiency (principal)
CPT/HCPCS: 93306

== ENCOUNTER → 2020-07-31 | Outpatient (CLI) | payer MEDICARE ==
--- NOTE | 2020-07-31 16:58 | KCIC ---
Bone mineral density exam History: Postmenopausal Comparison: None Findings: Bone mineral density examination utilizing DEXA was performed. Left hip bone mineral density of 0.914 g/cm2 corresponds with a T score -0.2, Z score 1.0. The bone mineral density of the lumbar spine was 0.926 g/cm2 which corresponds with a T-score of -1.1, Z score 0.9. By World Congress on Osteoporosis criteria, a T score of 0 to-1 SD is considered to be within normal limits. A T score of -1 to -2.5 SD is considered osteopenia. A T score less than -2.5 SD is considered osteoporosis Impression: 1. There is normal bone density of the left hip. There is osteopenia of the lumbar spine. Electronically signed by: Iraj Hinton MD (07/31/2020 4:55 PM) [id number]
== END | disposition home or self-care (01) ==
LOC: KCIC DEXA 13:12
PROVIDERS: ATTEND Nurse Practitioner
DX: Z13.820 Encounter for screening for osteoporosis (principal); Z78.0 Asymptomatic menopausal state; M85.88 Other specified disorders of bone density and structure, other site
CPT/HCPCS: 77080

== ENCOUNTER → 2020-07-31 | Outpatient (CLI) | payer MEDICARE ==
[~2020-07-31] MED LIST changes: +REGADENOSON 0.4 MG/5 ML DISP.SYRIN. IV ONE
--- NOTE | 2020-07-31 17:16 | RAD ---
MR#: [id number] Date of Study: 07/31/2020 Ordering Physician: AVA PLATT, Referring Physician: LAMONT MAGANA Tech: RT Madelyn Baker) (N) APPROVED REPORT Test Type: Pharmacological Stress Nurse/Tech: Jennifer Galindo R.N. Test Indications: chest pain Cardiac History: htn Medications: see ehr Medical History: see erh Resting ECG: sr Resting Heart Rate: 76 bpm Resting Blood Pressure: 101/66mmHg Pretest Chest Pain: Typical angina Nurse/Tech Notes lungs cta, heart tones regular, chest pain 2/10 Consent: The procedure was explained to the patient in lay terms. Informed consent was witnessed. Aubrey eout was entered into [employer]. History and Stress Test performed by RT Madelyn Bertrand) (N) Pharm. Details Pharmacologic stress testing was performed using 0.4mg per 5ml of regadenoson given intravenously ove r 7-10 seconds. Stress Symptoms Dyspnea, chest pain remained 2/10 throughout POST EXERCISE Reason for Termination: Infusion complete Target HR: No Max HR: 113 bpm Max Blood Pressure: 110/63mmHg Arrhythmia: No. INTERPRETATION Stress EKG Conclusion: The resting EKG shows a sinus rhythm and minimal nonspecific ST segment change s. The stress EKG shows mild nonspecific ST segment changes that are not diagnostic of ischemia. No EKG evidence of stress-induced ischemia. Imaging Protocol IMAGE PROTOCOL: Rest Tc-99m/stress Tc-99m 1 day Rest: Stress: Viability: Radiopharm.Tc99m CrqkwrgpzYz92j Sestamibi Dose10.3mCi 32.4mCi Duration 15min. 15min. Img Date 07/31/2020 07/31/2020 Inj-Img Wkts11mzw. 60min. Rest Admin Site:IV - Right HandAdministrator:RT Madelyn Bertrand)(N) Stress Admin Site: IV - Right HandAdministrator: RT Madelyn Bertrand)(N) STRESS DATA End Diast. Vol.37.0mlAv. Heart Rate90.0bpm End Syst. Vol.0.0mlCO Index BSA0.0L/min Myocardial Mass85.0gEject. Hiyyuhqt397.0% Stress Rates Pk. Fill Rate3.64EDV/secLVtime Pk. Fill 173.93msec Pk. Empty Rate6.63ESV/secLVtime Pk. Dtdak646.43msec 1/3 Pk. Fill1.02EDV/sec Stress Scores Regional WT0.00Summed WT0.00 Regional WM0.00Summed WM0.00 LV Perfusion The stress scans showed no significant defects. The rest scans showed no significant defects. Nuclear imaging shows no reversible ischemia or infarct. Wall Motion Left ventricular systolic function is normal with no regional wall motion abnormalities and an ejecti on fraction of greater than 70%. LV Perf. Quant 17 Seg. SSS1.00 17 Seg. SRS0.00 17 Seg. SDS1.00 Stress Defect Extent (% LAD)0.00Rest Defect Extent (% LAD)0.60Rev. Defect Extent (% LAD)0.00 Stress Defect Extent (% LCX) 12.50Rest Defect Extent (% LCX)0.00Rev. Defect Extent (% LCX)8.80 Stress Defect Extent (% RCA)0.00Rest Defect Extent (% RCA)0.00Rev. Defect Extent (% RCA)0.00 Stress Defect Extent (% MICHAEL)2.20Rest Defect Extent (% MICHAEL)0.90Rev. Defect Extent (% MICHAEL)1.50 Conclusion 1. Minimal nonspecific ST segment changes with exertion that are not diagnostic for ischemia. 2. Nuclear imaging shows no reversible ischemia or infarct. 3. Normal left ventricular systolic function with an ejection fraction of greater than 70%. 4. Moderately low to low risk Lexiscan nuclear stress test. Signed by : Bill Monteiro MD Electronically Approved : 07/31/2020 17:16:12
== END | disposition home or self-care (01) ==
LOC: NM 10:45
PROVIDERS: ATTEND Internal Medicine Cardiovascular Disease
DX: I10 Essential (primary) hypertension (principal); R07.9 Chest pain, unspecified
CPT/HCPCS: 78452; 93017; A9500; J2785

== ENCOUNTER → 2021-10-17 | Outpatient (CLI) | payer MEDICARE ==
[~2021-10-17] MED LIST changes: +AMLO-187 PO; -AMLO10TA8 PO; -LISI-334 PO; +LISI20TA18 PO; -REGADENOSON 0.4 MG/5 ML DISP.SYRIN. IV ONE
== END ==
LOC: LAB 09:23
PROVIDERS: ATTEND Nurse Practitioner Family
DX: R51.9 Headache, unspecified (principal); R53.1 Weakness
CPT/HCPCS: 36415; 85651

== ENCOUNTER → 2021-10-17 | Outpatient (CLI) | payer MEDICARE ==
--- NOTE | 2021-10-17 09:21 | RAD ---
EXAM: Brain MRI without contrast. HISTORY: Tension headache. TECHNIQUE: Multiplanar, multisequence magnetic resonance imaging of the brain was performed without c ontrast. COMPARISON: None. FINDINGS: There is no restricted diffusion to suggest acute or subacute infarction. There is no mass effect or midline shift. There is no hydrocephalus. There are scattered foci of signal change within the cerebral white matter, most commonly due to chronic small vessel disease in patients of this age. The orbits are unremarkable. There is paranasal sinus mucosal thickening. The mastoid air cells are c lear. There are normal flow voids within the cerebral vessels. There is no suspicious calvarial lesio n. There is a 2.0 cm T1 hypointense and T2 hyperintense lesion within the subcutaneous fat of the sup erior neck to left of midline. There are low-lying cerebellar tonsils, without evidence of ectopia. IMPRESSION: 1. No acute intracranial finding. 2. Scattered foci of signal change within the cerebral white matter, most commonly due to chronic sma ll vessel disease in patients of this age. 3. 2.0 cm T2 hyperintense lesion within the superior neck subcutaneous fat to the left of midline, th e appearance of which favors a sebaceous cyst. Electronically signed by: Latanya Thomas MD (10/17/2021 9:19 AM) [id number]
== END ==
LOC: MRI 08:52
PROVIDERS: ATTEND Nurse Practitioner Family
DX: G44.209 Tension-type headache, unspecified, not intractable (principal); R22.1 Localized swelling, mass and lump, neck
CPT/HCPCS: 70551

== ENCOUNTER → 2021-10-21 | Outpatient (CLI) | payer MEDICARE ==
--- NOTE | 2021-10-21 11:04 | RAD ---
INDICATION: Reason: NEW ONSET OF HEADACHES / Spl. Instructions: / History: COMPARISON: October 17, 2021 TECHNIQUE: Axial CT images obtained through the head without intravenous contrast. One or more of the following individualized dose reduction techniques were utilized for this examinat ion: 1. Automated exposure control; 2. Adjustment of the mA and/or kV according to patient size; 3 . Use of iterative reconstruction technique. FINDINGS: No intracranial hemorrhage. No significant midline shift. Ventricles and sulci are unremarkable Scattered foci of low attenuation within the white matter. IMPRESSION: * No acute intracranial hemorrhage. * Scattered regions of low attenuation within the white matter. Non-specific in nature but a common finding and frequently secondary to small vessel ischemic disease. * Subcutaneous lesion is again seen posteriorly overlying the suboccipital region. Again causes such as sebaceous cyst is within the differential. Electronically signed by: Aidan Zarco MD (10/21/2021 11:01 AM) [id number]
--- NOTE | 2021-10-21 12:41 | RAD ---
CT neck without contrast PQRS statement: CT scans at this facility use dose reduction including either automated exposure cont rol, iterative reconstructions, and /or weight based radiation dosing via mA and kV modification when appropriate to reduce radiation dose to as low as reasonably achievable. HISTORY: Mass of the neck. New onset of headaches. FINDINGS: Inferior of the thyroid isthmus is a 1.5 cm oval hypodense nodule. There is a tortuous righ t carotid artery extending behind the right thyroid lobe. Mild calcifications and thickening of the p alatine tonsils perhaps related to an old infection. No obvious mass lesion or narrowing of the oral cavity, nasopharynx, pharynx, larynx or subglottic trachea evident. Salivary glands, final canoe inspector space s, parapharyngeal spaces, submandibular space and sublingual space are unremarkable. At the midline u pper posterior neck there is a subcutaneous 2.5 cm oval cyst density of 18 units likely a sebaceous c yst. No solid mass or adenopathy in the neck. Bones are unremarkable. IMPRESSION: 1. No mass or adenopathy. 2. 2.5 cm sebaceous cyst at the upper midline posterior neck. 3. Lower right thyroid isthmus demonstrates a 1.5 cm hypodense nodule. Electronically signed by: Reese Evans MD (10/21/2021 12:38 PM) [facility]
== END ==
LOC: CT 09:54
PROVIDERS: ATTEND Nurse Practitioner Family
DX: L72.3 Sebaceous cyst (principal); E04.1 Nontoxic single thyroid nodule; J35.8 Other chronic diseases of tonsils and adenoids; L98.8 Other specified disorders of the skin and subcutaneous tissue; R90.82 White matter disease, unspecified; R51.9 Headache, unspecified
CPT/HCPCS: 70450; 70490

== ENCOUNTER → 2021-11-14 | Outpatient (CLI) | payer MEDICARE ==
[~2021-11-14] MED LIST changes: +HYDR-2761 PO
--- NOTE | 2021-11-14 09:18 | RAD ---
US THYROID History: Reason: THYROID NODULE / Spl. Instructions: / History: Comparison: CT October 21, 2021 Technique: Multiple grayscale and color Doppler images of the thyroid gland were obtained. Findings: Right thyroid lobe: 3.6 x 1.6 x 1.3 cm. Homogeneous echotexture. Left thyroid lobe: 4.3 x 1.5 x 1.5 cm. Homogeneous echotexture. Isthmus: 0.4 cm. -TI-RADS 2 bilateral thyroid cystic nodules. -Small hypoechoic isthmus nodule measures 0.5 x 0.4 x 0.4 cm. TI-RADS 4. -Solid isoechoic inferior isthmus nodule measures 1.9 x 1.8 x 1.1 cm. TI-RADS 3. ACR Thyroid Imaging, Reporting And Data System (TI-RADS): White Paper Of The ACR TI-RADS Committee. J ournal of the [employer], volume 14, issue 5, pages 587-595 (March 2017). IMPRESSION: 1. TI-RADS 4 and TI-RADS 3 isthmus nodules. Recommend one-year ultrasound follow-up. Electronically signed by: Julio Pack DO (11/14/2021 9:16 AM) [id number]
== END ==
LOC: US 06:52
PROVIDERS: ATTEND Surgery
DX: Z01.818 Encounter for other preprocedural examination (principal); E04.2 Nontoxic multinodular goiter; R22.1 Localized swelling, mass and lump, neck
CPT/HCPCS: 76536

== ENCOUNTER 2021-11-24 06:13 | Day surgery (SDC) | payer MEDICARE ==
[~2021-11-24] VITALS: Ht 147.3 cm; Wt 79.0 kg
[~2021-11-24 06:13] MED LIST changes: -HYDR-2761 PO; +IV RINGERS,LACTATED 1000ML 1,000 ML IV SCH; +PROCHLORPERAZINE 10 MG/2 ML VIAL. IVP PRN; +ceFAZolin SODIUM IV Push 1 GM VIAL. IVP PRN; +fentaNYL PF VIAL 100 MCG/2 ML VIAL IVP PRN
[2021-11-24 06:38] VITALS: BP 122/61
[2021-11-24] MEDS ORDERED: PROPOFOL 10 MG/ML (20ML) VIAL. IV ONE (06:44)
[2021-11-24] MEDS ORDERED: DEXAMETHASONE SOD PHOS 4 MG/ML VIAL ONE (06:45)
[2021-11-24] MEDS ORDERED: LIDOCAINE 2% PF 5 ML VIAL. ONE (06:45)
[2021-11-24] MEDS ORDERED: ONDANSETRON PF 4 MG/2 ML VIAL. ONE (06:45)
[2021-11-24] MEDS ORDERED: KETOROLAC 30 MG/ML VIAL. ONE (06:46)
[2021-11-24] MEDS ORDERED: fentaNYL PF VIAL 100 MCG/2 ML VIAL ONE ×2 (06:46→09:03)
[2021-11-24] MEDS ORDERED: LIDOCAINE 1%/EPI 1:100,000 20 ML VIAL. ONE (07:05)
[2021-11-24] MEDS ORDERED: FAMOTIDINE 20 MG/2 ML VIAL ONE (07:30)
[2021-11-24] MEDS ORDERED: ROCURONIUM 50 MG/5 ML VIAL. ONE (07:31)
[2021-11-24] MEDS ORDERED: GLYCOPYRROLATE 1 MG/5 ML VIAL. ONE (08:05)
[2021-11-24] MEDS ORDERED: NEOSTIGMINE METHYLSULFATE 5 MG/5 ML SYRINGE. ONE (08:05)
[2021-11-24] MEDS ORDERED: SEVOFLURANE 31 TO 60 MINUTES. IH ONE (08:16)
[2021-11-24] MEDS ORDERED: NEOSTIGMINE 10 MG/10 ML VIAL. ONE (08:16)
--- NOTE | 2021-11-24 08:42 | PDOC4 ---
Operative Note Operative Note Operative Note: Preoperative Diagnosis: Posterior neck mass Postoperative Diagnosis: Same Procedure: Excision of posterior neck mass, subcutaneous, 3 X 1.5 cm Surgeon: Nahun Implementation Architect: Ayesha DOUGHERTY Anesthesia: General EBL: 10 mL Specimen: neck mass 3 X 1.5 cm Drains: None Complications: None Indication: The patient is a 71-year-old female presented with a symptomatic posterior neck mass. She was offered surgical excision. The risks of surgery were discussed which include bleeding, infection, recurrence, pain, anesthetic risk, potential need for additional surgery procedure. She understands and would like to proceed Description: The patient was taken to the operating room and placed supine in the operating table. General anesthesia was performed. She was then placed prone exposing the posterior neck. The area was shaved and prepped with Betadine and draped in a standard surgical manner. An elliptical incision was made around the midline area of the mass which included a portion of skin. The mass was primarily subcutaneous. Sharp dissection was used to mobilize the mass from the surrounding tissues. The mass was fully excised and measured 3 x 1.5 cm with no additional margins. The mass was sent to pathology. Hemostasis was achieved with cautery. The subcutaneous tissue was closed with 3-0 Vicryl. The skin was approximated with 4-0 Monocryl. A sterile dressing was then applied. The patient tolerated the procedure well and was sent to the recovery room in stable condition. At the end of the case all counts were correct. LINDA GARAY MD Nov 24, 2021 08:42
[2021-11-24] MEDS ORDERED: HYDR-2761 PO (08:44)
--- NOTE | 2021-11-24 08:46 | DISCH ---
DISCHARGE INSTRUCTIONS Condition on Discharge Condition on Discharge: Unstable Activity After Discharge Activity Instructions for Disc: Activity as tolerated Diet after Discharge Diet after Discharge: Regular Wound Incision Care Wound/Incision Care: May get incision wet, Other, see below (keep dressing clean and dry X 72 hours, may then remove and shower) Follow-Up Follow up with: Dr Garay in office in 2 weeks, call [phone] if not made already LINDA GARAY MD Nov 24, 2021 08:46
[2021-11-24] MEDS ORDERED: HYDROcodone/APAP 5/325MG 1 TAB TABLET PO ONE (09:00)
[2021-11-24] MEDS: fentaNYL PF VIAL 100 MCG/2 ML VIAL IVP PRN ×2 (09:07→09:40)
[2021-11-24 09:31] VITALS: BP 107/54
--- NOTE | 2021-11-25 18:15 | PATHOLOGY ---
[facility] Accession Number: [id number] . 01 Material submitted: . neck - NECK MASS . 01 Clinical history: . EXCISION POSTERIOR NECK MASS . 02 Diagnosis: Skin and subcutaneous tissue, posterior neck mass excision: - Follicular cyst, infundibular type. ([facility]; 11/25/2021) [facility] 11/25/2021 1452 Local . 02 Comment: There is no evidence of malignancy. ([facility]; 11/25/2021) . 02 Electronically signed: . Shane Echeverria MD, Pathologist NPI- [id number] . 01 Gross description: . Received in formalin labeled "Weinstein, Eliana, neck mass" is an unoriented ellipse of skin measuring 3.1 x 2.2 x 1.8 cm. The skin surface is light simmons and grossly unremarkable. The margin is inked. Sectioning reveals a possible intact cystic structure filled with light simmons to dark simmons friable material measuring 2.0 cm. The specimen is serially sectioned and submitted representatively in cassette A1.([facility]; 11/24/2021) [facility] 11/24/2021 1641 Local . 02 Pathologist provided ICD-10: L73.9 . 02 CPT . 844650 Specimen Comment: A courtesy copy of this report has been sent to [phone] Specimen Comment: Report sent to Specimen Comment: A duplicate report has been generated due to demographic updates. Performed at: 01 [facility] [address], [place] [id number] MD Gary Davidson MD Phone: [phone] Performed at: 02 [facility] [address], [place] [id number] MD Shane Echeverria MD Phone: [phone]
== END 2021-11-24 10:11 | disposition home or self-care (01) ==
LOC: SURG 06:13
PROVIDERS: ATTEND Surgery
DX: L73.9 Follicular disorder, unspecified (principal); R22.1 Localized swelling, mass and lump, neck; I10 Essential (primary) hypertension; E78.00 Pure hypercholesterolemia, unspecified; J45.909 Unspecified asthma, uncomplicated; G47.30 Sleep apnea, unspecified; K21.9 Gastro-esophageal reflux disease without esophagitis; M19.90 Unspecified osteoarthritis, unspecified site; F41.9 Anxiety disorder, unspecified; Z90.49 Acquired absence of other specified parts of digestive tract; Z98.51 Tubal ligation status; Z98.890 Other specified postprocedural states; Z79.899 Other long term (current) drug therapy; Z88.5 Allergy status to narcotic agent
CPT/HCPCS: 11423; A4364; A4930; A6402; J0690; J1100; J1885; J2405; J2704; J2710; J3010; J3490; 88304; A4452; A4657

== ENCOUNTER → 2021-12-26 | Outpatient (CLI) | payer MEDICARE ==
[~2021-12-26] MED LIST changes: +HYDR-2761 PO; -IV RINGERS,LACTATED 1000ML 1,000 ML IV SCH; +LIDOCAINE 1% Multi-Dose 20 ML VIAL. INJ ONE; -PROCHLORPERAZINE 10 MG/2 ML VIAL. IVP PRN; -ceFAZolin SODIUM IV Push 1 GM VIAL. IVP PRN; -fentaNYL PF VIAL 100 MCG/2 ML VIAL IVP PRN
--- NOTE | 2021-12-26 14:47 | RAD ---
EXAM: Thyroid fine-needle aspiration. HISTORY: Thyroid nodule. TECHNIQUE: The risks of the procedure discussed with the patient and written and verbal consent was o btained. A timeout was performed. Sonographic imaging of the thyroid was performed and the lesion of concern within the isthmus was identified. 1.9 cm in maximum dimension. The skin overlying this locat ion was sterilely prepped, draped and infiltrated with 1 percent lidocaine. 4 passes were obtained th rough the lesion with 25-gauge needles using sonographic guidance. A Rotex needle was then advanced i nto the lesion and the aspirate was submitted to the pathologist for analysis. A sterile bandage was placed at the needle entry site. The patient tolerated the procedure without complication. IMPRESSION: Sonographic guided fine-needle aspiration of a 1.9 cm nodule within the thyroid isthmus. Electronically signed by: Latanya Thomas MD (12/26/2021 2:45 PM) [id number]
== END | disposition home or self-care (01) ==
LOC: US 13:24
PROVIDERS: ATTEND Surgery
DX: E04.1 Nontoxic single thyroid nodule (principal); I10 Essential (primary) hypertension; E78.00 Pure hypercholesterolemia, unspecified; G47.30 Sleep apnea, unspecified; K21.9 Gastro-esophageal reflux disease without esophagitis; M19.90 Unspecified osteoarthritis, unspecified site; F41.9 Anxiety disorder, unspecified; Z88.5 Allergy status to narcotic agent; Z79.899 Other long term (current) drug therapy; Z90.49 Acquired absence of other specified parts of digestive tract; Z98.51 Tubal ligation status; Z98.890 Other specified postprocedural states
CPT/HCPCS: 10005; C1819

== ENCOUNTER → 2022-01-16 | Outpatient (CLI) | payer MEDICARE ==
[~2022-01-16] MED LIST changes: -LIDOCAINE 1% Multi-Dose 20 ML VIAL. INJ ONE
--- NOTE | 2022-01-16 10:53 | RAD ---
EXAM: Sonographic guided thyroid fine-needle aspiration and core biopsy. HISTORY: 71-year-old female presents for repeat tissue sampling of a thyroid nodule. Fine-needle aspi ration with 25-gauge needles and a Rotex device was performed 12/26/2021. Additional sampling is reque sted.. TECHNIQUE: The risks of the procedure were discussed with the patient and written and verbal consent was obtained. A timeout was performed. Sonographic imaging of the thyroid was performed and the nodul e of concern was identified. The skin overlying this region was sterilely prepped, draped and infiltr ated with 1 percent lidocaine. 4 passes were made through the nodule with 25-gauge needles using sono graphic guidance. 2 core biopsies were obtained with a 20-gauge biopsy device using sonographic sofy nce. Manual compression was maintained until hemostasis was achieved. A sterile measures placed. The patient tolerated the procedure without immediate complication. IMPRESSION: Sonographic guided tissue sampling of a previously described nodule within the thyroid is thmus. 2 core biopsies were included with the aspirate for interpretation. Electronically signed by: Latanya Thomas MD (01/16/2022 10:50 AM) [id number]
--- NOTE | 2022-01-19 16:08 | PATHOLOGY ---
[facility] Accession Number: [id number] . 01 Material submitted: . thyroid gland - THYROID ISTHMUS MASS CORE BIOPSY 1.9CM. Modifiers: isthmus . 01 Clinical history: . THYROID NODULE . 02 Diagnosis: Thyroid tissue, thyroid isthmus mass, core biopsy: - Follicular lesion with Hurthle cell features. See comment. . (JPM:mm; 01/19/2022) [facility] 01/19/2022 1200 Local . 02 Comment: Sections of the thyroid isthmus mass core biopsy reveal a follicular lesion in which the follicular cells show Hurthle cell features. There are two small foci of chronic and granulomatous inflammation consistent with palpation thyroiditis. The differential diagnosis includes Hurthle cell neoplasm and adenomatous nodule with prominent Hurthle cell features. There is no evidence of papillary carcinoma. Please correlate with cytology. . (JPM:mml; 01/19/2022) . 02 Electronically signed: . Shane Echeverria MD, Pathologist NPI- [id number] . 01 Gross description: . Received in formalin labeled "Eliana Weinstein, core biopsy thyroid isthmus" are 2 simmons-brown cylindrical core fragments measuring 0.8 cm and 0.6 cm in length and each measuring 0.1 cm in diameter. The specimen is entirely submitted in cassette A1-A2. ([facility]; 01/18/2022) . GZA/GZA 01/18/2022 1515 Local . 02 Pathologist provided ICD-10: E04.1 . 02 CPT . 258766 Specimen Comment: A courtesy copy of this report has been sent to [phone] Specimen Comment: Report sent to Performed at: [address] [facility] [address], [place], [place] [id number] MD Gary Davidson MD Phone: [phone] Performed at: 02 [facility] [address] [place], [place] [id number] MD Shane Echeverria MD Phone: [phone]
== END | disposition home or self-care (01) ==
LOC: US 10:01
PROVIDERS: ATTEND Surgery
DX: E04.1 Nontoxic single thyroid nodule (principal); I10 Essential (primary) hypertension; E78.00 Pure hypercholesterolemia, unspecified; J45.909 Unspecified asthma, uncomplicated; G47.30 Sleep apnea, unspecified; K21.9 Gastro-esophageal reflux disease without esophagitis; M19.90 Unspecified osteoarthritis, unspecified site; F41.9 Anxiety disorder, unspecified; Z79.899 Other long term (current) drug therapy; Z98.890 Other specified postprocedural states; Z88.5 Allergy status to narcotic agent
CPT/HCPCS: 10005; C1819